=== PATIENT | male | born 1985 | race Caucasian/White ===

== ENCOUNTER 2019-03-08 11:56 | Emergency (ER) | payer SELFPAY ==
[~2019-03-08] VITALS: Ht 172.7 cm; Wt 79.2 kg
[2019-03-08 12:05] VITALS: BP 134/84
--- NOTE | 2019-03-08 12:30 | NUR ---
PATIENT PRESENTS TO ED WITH INTERMITTENT TESTICULAR PAIN X1 YEAR WORSE THE LAST 2 DAYS. DENIES INJURY. DENIES BLOOD IN THE URINE. DENIES DIFFICULTY, FREQUENCY OR BURNING SENSATION WHEN URINATING. PATIENT STATES PAIN OF 6/10 AT THIS TIME. VSS. PATIENT POSITIONED FOR COMFORT. HOB ELEVATED; BEDRAILS UP X1; BED DOWN. PENDING ER MD EVALUATION.
--- NOTE | 2019-03-08 14:37 | NUR ---
DR. AZAR BEDSIDE EVALUATING PT
--- NOTE | 2019-03-08 15:00 | NUR ---
Patient discharged with v/s stable. Written and verbal after care instructions given and explained. Patient alert, oriented and verbalized understanding of instructions. Ambulatory with steady gait. All questions addressed prior to discharge. ID band removed. Patient advised to follow up with PMD. Rx of MOTRIN 800 MG given. Patient educated on indication of medication including possible reaction and side effects. Opportunity to ask questions provided and answered.
[2019-03-08 15:01] VITALS: BP 136/93
== END 2019-03-08 15:00 | disposition home or self-care (01) ==
LOC: MED 11:56
DX: N50.89 Other specified disorders of the male genital organs (principal); N50.812 Left testicular pain
CPT/HCPCS: 76870; 81002; 99284; Q0092